=== PATIENT | female | born 1945 | race Two or more races ===

== ENCOUNTER 2022-11-07 07:44 | Emergency (ER) | payer OTHER ==
[~2022-11-07] VITALS: Ht 160 cm; Wt 58.1 kg
[2022-11-07] MEDS ORDERED: LIPITOR20 MG PO (08:22)
== END 2022-11-07 10:43 | disposition home or self-care (01) ==
LOC: ER 07:44
DX: R19.8 Other specified symptoms and signs involving the digestive system and abdomen (principal); K57.90 Diverticulosis of intestine, part unspecified, without perforation or abscess without bleeding; I10 Essential (primary) hypertension; E78.00 Pure hypercholesterolemia, unspecified

== ENCOUNTER 2024-10-11 20:57 | Emergency (ER) | payer OTHER ==
[~2024-10-11] VITALS: Ht 160 cm; Wt 53.5 kg
[~2024-10-11 20:57] MED LIST: LIPITOR20 MG PO
[2024-10-11] MEDS ORDERED: ZETIA10 MG PO (21:48)
[2024-10-11] MEDS ORDERED: PROTONIX20 MG PO (21:48)
[2024-10-11] MEDS ORDERED: HYOSCYAMINE SULFATE 0.125 MG TAB.SUBL SL ONE (22:45)
[2024-10-11] MEDS ORDERED: HYOSCYAMINE SULFATE 0.125 MG TAB.SUBL ONE (22:58)
[2024-10-11 23:19] LABS: BASO % 0.4 % (0.1-1.2); EOS # 0.13 (0.04-0.54); EOS % 1.7 % (0.7-7.0); HEMATOCRIT 38.2 % (34.1-44.9); HEMOGLOBIN 12.3 g/dL (11.2-15.7); LYMPH # 3.07 (1.18-3.74); LYMPH % 39.8 % (19.3-53.1); MEAN CORPUSCULAR HEMOGLOBIN 26.2 pg (25.6-32.2); MONO % 7.8 % (4.7-12.5); NEUT # 3.88 (1.56-6.13); NEUT % 50.2 % (34.0-71.1); PLATELET COUNT 337 K/uL (163-369); RED CELL DISTRIBUTION WIDTH 15.4 % (11.6-14.4)
[2024-10-11 23:27] LABS: INR 0.94; PROTHROMBIN TIME 10.3 SECONDS (9.0-11.5)
[2024-10-11 23:28] LABS: CALCIUM 8.4 mg/dL (8.5-10.1); CREATININE SERUM 0.65 mg/dL (0.55-1.02); GFR 88.15; POTASSIUM 4.21 mEq/L (3.5-5.1)
== END 2024-10-12 01:53 | disposition home or self-care (01) ==
LOC: ER 20:57
DX: K52.9 Noninfective gastroenteritis and colitis, unspecified (principal); R10.32 Left lower quadrant pain